=== PATIENT | male | born 1995 | race Caucasian/White ===

== ENCOUNTER 2022-03-16 00:46 | Emergency (ER) | payer BC | END 2022-03-16 03:10 | disposition home or self-care (01) | LOC: NAV ERS 00:46 | DX: S43.401A Unspecified sprain of right shoulder joint, initial encounter (principal); T14.8XXA Other injury of unspecified body region, initial encounter; Y04.0XXA Assault by unarmed brawl or fight, initial encounter; F17.210 Nicotine dependence, cigarettes, uncomplicated | CPT/HCPCS: 70450; 71045; 72125 ==